=== PATIENT | female | born 1975 | race Caucasian/White ===

== ENCOUNTER 2024-04-06 11:04 | Outpatient (AMB) | payer OTHER, SELFPAY ==
[2024-04-06 11:06] VITALS: BP 144/88; PULSE 135; O2SAT 97; BMI 37.4
--- NOTE | 2024-04-06 11:06 | HO.NEPHOV ---
Vital Signs 04/06/24 11:06 04/06/24 11:42 04/06/24 11:43 04/06/24 11:43 Height 5 ft 3 in Weight 211 lb BMI 37.4 BP 144/88 H 130/80 130/80 130/80 Blood Pressure Location Lt brachial Lt brachial Rt brachial Rt brachial Position Sitting Standing Sitting Standing Pulse 135 H 100 Pulse Source Pulse Oximeter Palpation Pulse Oximetry (%) 97 Oxygen Delivery Method Room Air Intake Visit Reasons: Labile BP, Proteinuria/ LVM Electronics Lead Required: No Accompanied by: Self / Same As Patient Allergies loracarbef [From Lorabid] Allergy (Unknown, Verified 04/06/24 11:09) Unknown Seasonal Allergies Allergy (Unknown, Verified 04/06/24 11:09) Unknown Medication List - Last Reconciled 04/06/24 by Riley Adams MD cetirizine (Zyrtec) 10 mg PO DAILY PRN clobetasol 0.05% 1 appl topical BID PRN CPAP As directed estradiol 0.01%(0.1mg/gram) vaginal PRN fluoxetine 10 mg PO DAILY fluoxetine 20 mg PO DAILY HPI Comments Details: Krystal is a pleasant 48-year-old woman who has been enjoying reasonably good health. Recently her blood pressure has been fluctuating. She has no history of hypertension. She had not on any antihypertensive medication. Recent urinalysis showed urine microalbumin creatinine ratio of 250 and hence this referral. She has a history of obstructive sleep apnea she uses CPAP regularly for the past year and half. He was elevated BMI and she recently gained some weight. [facility] Medical History (Updated 04/06/24 @ 11:30 by Riley Adams MD) Obesity Microalbuminuria Menorrhagia Hypertension Carcinoid tumor of rectum Dyspareunia in female Abnormal colonoscopy Surgical History Hx of colonoscopy (~04/2022) Review of Systems Const Denies fever(s) Card Denies chest pain Resp Denies cough and Denies hemoptysis GI Denies abdominal pain, Denies diarrhea and Denies nausea Musc Denies back pain Neuro Denies focal weakness Physical Exam Vital Signs: Last Vital Signs Pulse 135 H 04/06/24 11:06 BP 144/88 H 04/06/24 11:06 Pulse Ox 97 04/06/24 11:06 Oxygen Delivery Method Room Air 04/06/24 11:06 BMI result Body Mass Index 37.4 Const General: comfortable; No acute distress Orientation/consciousness: patient oriented x3 Eyes General: appearance normal, both eyes and all related structures Visual Valdes: normal visual valdes by confrontation Neck Neck: Yes supple and Yes no JVD Resp Effort & Inspection: normal respiratory effort and respiratory effort not decreased Auscultation: rhonchi Cardio Palpation: no palpable S3 and no palpable S4 Heart sounds: no rubs GI Inspection: Yes normal to inspection Palpation (GI): Soft to palpation Percussion: Yes normal to percussion Auscultation: normal bowel sounds General: Yes no CVA tenderness Back/Spine/Pelvis Back: no CVA tenderness Skin General skin exam: no petechiae and no purpura Neuro General: patient oriented x3 and no focal motor deficits Extrem General: No clubbing and No edema Results Reviewed Results Reviewed: Serum creatinine normal. Urine microalbumin creatinine ratio 250 Nephrology Results: No Data to Display Assessment & Plan Assessment & Plan (1) Microalbuminuria: Code(s): R80.9 - Proteinuria, unspecified Category: Medical Plan 48-year-old woman with a history of obstructive sleep apnea and elevated BMI of 37 has microalbuminuria. In the office for initial blood pressure was elevated. Repeat blood pressure was in the normal range. No orthostatic changes. Microalbuminuria may be due to underlying obesity. Uncontrolled hypertension could be another possibility over the blood pressure was in the acceptable range today. Plan Obtain 24 hour ambulatory blood pressure monitoring Baseline workup ordered for proteinuria. Encouraged her to stand low-sodium diet She will benefit from weight loss which I have discussed with the. She has to increase her physical activity. I will track down the 24 hour urine studies done last week. She returned to office in the next few weeks. If she has persistent proteinuria she will benefit from an YULIANA inhibitor for cardiorenal protection. Orders: Orders AMB 24 HR B/P Monitor PLACEMENT Today I10 - Essential (primary) hypertension Coding Level of Care Code New Pt Level 4 (42087) Diagnoses Microalbuminuria R80.9
[2024-04-06 11:42] VITALS: BP 130/80
[2024-04-06 11:43] VITALS: BP 130/80; PULSE 100
== END 2024-04-06 11:37 | disposition home or self-care (01) ==
PROVIDERS: PCP Family Medicine; Referring Provider Family Medicine; Visit Provider Internal Medicine Hypertension Specialist
DX: R80.9 Proteinuria, unspecified (principal)
CPT/HCPCS: 99204

== ENCOUNTER → 2024-04-06 11:04 | Outpatient (BNVA) | payer OTHER, SELFPAY | PROVIDERS: PCP Family Medicine; Referring Provider Family Medicine; Visit Provider Internal Medicine Hypertension Specialist ==